=== PATIENT | male | born 1945 | race African-American/Black ===

== ENCOUNTER 2023-06-19 12:07 | Inpatient (IN) | payer OTHER ==
--- NOTE | 2023-06-19 12:49 | RAD REPORT ---
EXAM DESCRIPTION: CT - Head Brain Wo Cont - 06/19/2023 12:40 pm CLINICAL HISTORY: Alteration of awareness/confusion COMPARISON: None TECHNIQUE: Computed axial tomography of the head was obtained. IV contrast was not requested. All CT scans are performed using dose optimization technique as appropriate and may include automated exposure control or mA/KV adjustment according to patient size. FINDINGS: An intracranial bleed is not seen The ventricles are normal in caliber No extra-axial fluid collection is noted. Mild to moderate cerebral atrophy Fluid within the sinuses/ mastoids is not seen. IMPRESSION: No acute intracranial abnormality is seen If patient's symptoms persist MRI of the brain would be recommended
[2023-06-19 12:51] LABS: Protime INR 1.62
[2023-06-19 12:52] LABS: Hematocrit 37.1 % (39.6-49.0); Lymphocytes % 11.1 % (15.3-44.8); MCV 88.9 fL (80-100); MPV 8.3 fL (7.6-11.3); Platelets 251 thou/uL (152-406); RBC Red Blood Cell Count 4.18 M/uL (4.33-5.43)
--- NOTE | 2023-06-19 12:57 | RAD REPORT ---
EXAM DESCRIPTION: CT - Abdomen Pelvis Wo Contrast - 06/19/2023 12:39 pm CLINICAL HISTORY: Abdominal pain COMPARISON: None TECHNIQUE: Computed axial tomography of the abdomen and pelvis was obtained. IV and oral contrast we re not requested. All CT scans are performed using dose optimization technique as appropriate and may include automated exposure control or mA/KV adjustment according to patient size. FINDINGS: The evaluation of solid organs, vessels and bowel is limited secondary to the lack of con trast administration. The liver, spleen, pancreas, adrenals and kidneys appear grossly normal. Filter within the IVC. There is no evidence of diverticulitis. Compression screw and intramedullary desiree affix a proximal left femoral fracture. Lucencies are presen t within the intratrochanteric, lesser trochanter and greater trochanter left femur Borderline gallbladder distention IMPRESSION: Compression screw an intramedullary desiree affix a proximal left femoral fracture. Lucencies are present within the intratrochanteric, lesser trochanter and greater trochanter left femur. Presumably the fr acture and subsequent surgery is subacute. If the surgery is old then this would indicate a superimpo sed acute fracture Borderline gallbladder distention with possible sludge
[2023-06-19 13:21] LABS: Albumin 3.2 g/dL (3.4-5.0); Bilirubin Total 0.5 mg/dL (0.2-1.0); Potassium 4.5 mEq/L (3.5-5.1); Protein, Total 7.7 g/dL (6.4-8.2)
[2023-06-19] MEDS ORDERED: NACHLORIDE 0.45% 1,000 ML IV ONE (13:35)
--- NOTE | 2023-06-19 13:36 | RAD REPORT ---
EXAM DESCRIPTION: USExtremity Venous Uni Ltd06/19/2023 1:25 pm CLINICAL HISTORY: left leg pain COMPARISON: None FINDINGS: Left common femoral, superficial femoral, greater saphenous, popliteal and posterior tibi al veins are compressible and demonstrate augmentation. Doppler demonstrates good flow. Grayscale, color and spectral analysis performed on all vessels IMPRESSION: No evidence of deep venous thrombosis involving the left lower extremity.
--- NOTE | 2023-06-19 14:20 | EDPHYS ---
Physician Documentation [facility] Name: Anatoliy Harrington Jr Age: 78 yrs Sex: Male : 1945 Arrival Date: 06/19/2023 Time: 12:07 Bed 14 Private MD: ED Physician Juan Luis Wilkins HPI: 06/19 12:44 This 78 yrs old Black Male presents to ER via EMS with complaints of Hip Pain. rn 12:44 The patient presents with decreased responsiveness. Onset: The symptoms/episode rn began/occurred at an unknown time. Possible causes: unknown. Current symptoms: In the emergency department the patient's symptoms have improved. It is unknown whether or not the patient has had similar symptoms in the past. EMS reports called from [facility] for altered mental status. He is new to [facility] so they are unsure his baseline but they told EMS his baseline was laying in bed and open eyes. Reports patient's status post recent left hip injury and surgery. No new fall or trauma noted. Noted this morning during rounds to not be as arousable so 911 called. No fever. No vomiting.. Historical: - Allergies: 12:11 No Known Allergies; bp - PMHx: 12:11 LEFT HIP FX; Diabetes mellitus; Hypercholesterolemia; Schizophrenia; Dementia; bp Depressive disorder; Coronary atherosclerosis; Chronic obstructive lung disease; - Immunization history:: Adult Immunizations up to date. - Social history:: Smoking status: unknown. - Family history:: not pertinent. - Hospitalizations: : No recent hospitalization is reported. ROS: 12:44 Unable to obtain ROS due to altered mental status, baseline dementia, rn Exam: 12:44 Constitutional: Thin male, disheveled, appears in pain when moved to ER bed from rn stretcher Head/Face: Normocephalic, atraumatic. ENT: Dry mucous membranes Cardiovascular: Tachycardic, regular Respiratory: No increased work of breathing, no retractions or nasal flaring. Abdomen/GI: Soft, mild left-sided abdominal tenderness, no distention MS/ Extremity: Pulses equal, no cyanosis. Equal circumference. Painful range of motion left hip with Steri-Strips and healing surgical wounds along the left lateral hip. Neuro: Awake and alert, GCS 15 15:32 ECG was reviewed by the Attending Physician. rn Vital Signs: 12:06 BP 113 / 64; Pulse 111; Resp 17; Pulse Ox 99% on R/A; me1 12:09 BP 138 / 90; Pulse 112; Resp 20; Temp 98; Pulse Ox 97% ; bp 13:58 BP 122 / 76; Pulse 110; Resp 17; Pulse Ox 97% on R/A; me1 14:00 BP 136 / 77; Pulse 111; Resp 21; Pulse Ox 100% on R/A; me1 15:00 BP 130 / 80; Pulse 112; Resp 18; Pulse Ox 100% on R/A; me1 16:00 BP 119 / 77; Pulse 110; Resp 18; Pulse Ox 100% on R/A; me1 17:00 BP 121 / 90; Pulse 108; Resp 19; Pulse Ox 98% on R/A; me1 17:00 BP 118 / 76; Pulse 113; Resp 23; Pulse Ox 100% ; me1 MDM: 12:10 Patient medically screened. rn 14:18 Differential Diagnosis: CVA, electrolyte abnormality, hypoglycemia, pneumonia, UTI, rn volume depletion. Data reviewed: vital signs, nurses notes, lab test result(s), radiologic studies, CT scan, plain films, and as a result, I will admit patient. Consideration of Admission/Observation Patient was admitted/placed on observation. Escalation of care including admission/observation considered. Care significantly affected by the following chronic conditions: Diabetes, Hypertension. Counseling: I had a detailed discussion with the patient and/or guardian regarding the historical points, exam findings, and any diagnostic results supporting the discharge/admit diagnosis, lab results, radiology results, the need for further work-up and treatment in the hospital. 06/19 12:15 Order name: CBC with Diff; Complete Time: 13:12 rn 06/19 12:15 Order name: Urinalysis w/ reflexes; Complete Time: 15:10 rn 06/19 12:15 Order name: Blood Culture Adult (2) rn 06/19 12:15 Order name: CMP; Complete Time: 13:36 rn 06/19 12:15 Order name: Lactate w/ 2H reflex if indic.; Complete Time: 13:12 rn 06/19 12:15 Order name: Protime (+inr); Complete Time: 13:12 rn 06/19 12:15 Order name: Ptt, Activated; Complete Time: 13:12 rn 06/19 12:15 Order name: XRAY Hip LEFT 2 view; Complete Time: 15:31 rn 06/19 12:15 Order name: Extremity Venous Uni Ltd US; Complete Time: 13:55 rn 06/19 12:15 Order name: CT Abd/Pelvis - Without Contrast; Complete Time: 13:12 rn 06/19 12:15 Order name: CT Head Brain wo Cont; Complete Time: 13:12 rn 06/19 12:47 Order name: XRAY Chest (1 view); Complete Time: 15:31 rn 06/19 12:15 Order name: EKG; Complete Time: 12:16 rn 06/19 12:15 Order name: IV Start; Complete Time: 12:42 rn 06/19 12:15 Order name: Accucheck; Complete Time: 13:42 rn 06/19 12:15 Order name: Cardiac monitoring; Complete Time: 14:06 rn 06/19 12:15 Order name: EKG - Nurse/Tech; Complete Time: 14:06 rn 06/19 12:15 Order name: IV Saline Lock - Large Bore; Complete Time: 12:42 rn 06/19 12:15 Order name: Labs collected and sent; Complete Time: 12:42 rn 06/19 12:15 Order name: O2 Per Protocol; Complete Time: 12:42 rn 06/19 12:15 Order name: O2 Sat Monitoring; Complete Time: 12:42 rn 06/19 12:15 Order name: Vital Signs; Complete Time: 12:42 rn EC:32 Rate is 108 beats/min. Rhythm is regular. QRS [place] is Normal. AL interval is normal. rn QRS interval is normal. QT interval is normal. No Q waves. T waves are Normal. No ST changes noted. Clinical impression: Sinus tachycardia. Interpreted by me. Reviewed by me. Administered Medications: 13:25 CANCELLED (Duplicate Order): ns 0.9% 1000 ml IV at 1000 ml once rn 13:42 Drug: NS IV 0.45 % 1000 ml IV at 125 ml/hr continuous Route: IV; Rate: 125 ml/hr; Site: [facility] right antecubital; Disposition Summary: 06/19/23 14:19 Hospitalization Ordered Notes: Hospitalization Status: Inpatient Admission rn Provider: Robson Ortega rn Location: Telemetry/MedSurg (Inpatient) rn Condition: Stable rn Problem: new rn Symptoms: have improved rn Bed/Room Type: Standard rn Room Assignment: 407(06/19/23 16:41) bd Diagnosis - Altered mental status, unspecified rn - Acute kidney failure, unspecified rn - Hyperosmolality and hypernatremia rn Forms: - Medication Reconciliation Form rn - SBAR form rn - Leadership Thank You Letter rn Signatures: Dispatcher [employer] EDNathalie Ovalle Roman, MD MD rn Peltier, Brian RN Holley Pandey RN RN me1 Corrections: (The following items were deleted from the chart) 13:25 13:25 NS 0.9% IV 1000 ml IV at 1000 ml once ordered. rn rn 16:41 14:19 rn gabrielle
--- NOTE | 2023-06-19 14:20 | ER ---
Nurse's Notes [facility] Name: Anatoliy Harrington Jr Age: 78 yrs Sex: Male : 1945 Arrival Date: 06/19/2023 Time: 12:07 Bed 14 Private MD: Diagnosis: Altered mental status, unspecified;Acute kidney failure, unspecified;Hyperosmolality and hypernatremia Presentation: 06/19 12:09 Chief complaint: EMS states: SENT FROM [facility] FOR DECREASED LOC "NORMALLY HE OPENS bp HIS EYES. TODAY HE'S KEPT THEM CLOSED MORE". Coronavirus screen: At this time, the client does not indicate any symptoms associated with coronavirus-19. Ebola Screen: No symptoms or risks identified at this time. Initial Sepsis Screen: Does the patient meet any 2 criteria? HR > 90 bpm. No. Patient's initial sepsis screen is negative. Does the patient have a suspected source of infection? No. Patient's initial sepsis screen is negative. Risk Assessment: Do you want to hurt yourself or someone else? Patient reports no desire to harm self or others. Onset of symptoms is unknown. Care prior to arrival: Glucose check: 154. 12:09 Method Of Arrival: EMS: [facility] bp 12:09 Acuity: KARO 3 bp Triage Assessment: 12:11 General: Appears uncomfortable, unkempt, Behavior is agitated, anxious. Pain: Unable to bp use pain scale. Does not appear to understand pain scale. Historical: - Allergies: 12:11 No Known Allergies; bp - PMHx: 12:11 LEFT HIP FX; Diabetes mellitus; Hypercholesterolemia; Schizophrenia; Dementia; bp Depressive disorder; Coronary atherosclerosis; Chronic obstructive lung disease; - Immunization history:: Adult Immunizations up to date. - Social history:: Smoking status: unknown. - Family history:: not pertinent. - Hospitalizations: : No recent hospitalization is reported. Screenin:14 [facility] ED Fall Risk Assessment (Adult) History of falling in the last 3 months, bp including since admission No falls in past 3 months (0 pts). Abuse screen: Denies threats or abuse. Denies injuries from another. Nutritional screening: No deficits noted. Tuberculosis screening: No symptoms or risk factors identified. Assessment: 12:10 General: Appears. me1 Vital Signs: 12:06 BP 113 / 64; Pulse 111; Resp 17; Pulse Ox 99% on R/A; me1 12:09 BP 138 / 90; Pulse 112; Resp 20; Temp 98; Pulse Ox 97% ; bp 13:58 BP 122 / 76; Pulse 110; Resp 17; Pulse Ox 97% on R/A; me1 14:00 BP 136 / 77; Pulse 111; Resp 21; Pulse Ox 100% on R/A; me1 15:00 BP 130 / 80; Pulse 112; Resp 18; Pulse Ox 100% on R/A; me1 16:00 BP 119 / 77; Pulse 110; Resp 18; Pulse Ox 100% on R/A; me1 17:00 BP 121 / 90; Pulse 108; Resp 19; Pulse Ox 98% on R/A; me1 17:00 BP 118 / 76; Pulse 113; Resp 23; Pulse Ox 100% ; me1 ED Course: 12:09 Patient arrived in ED. bp 12:10 Juan Luis Wilkins MD is Attending Physician. rn 12:10 Holley Sanford RN is Primary Nurse. me1 12:11 Triage completed. bp 12:11 Arm band placed on. bp 12:14 Patient has correct armband on for positive identification. bp 12:41 CT Abd/Pelvis - Without Contrast In Process Unspecified. EDMS 12:41 CT Head Brain wo Cont In Process Unspecified. EDMS 12:41 Inserted saline lock: 20 gauge in right antecubital area, using aseptic technique. me1 12:42 CBC with Diff Sent. me1 13:26 Extremity Venous Uni Ltd US In Process Unspecified. EDMS 14:19 Robson Ortega MD is Hospitalizing Provider. rn 14:39 XRAY Hip LEFT 2 view In Process Unspecified. EDMS 14:39 XRAY Chest (1 view) In Process Unspecified. EDMS 14:50 Blood Culture Adult (2) Sent. me1 14:50 Urinalysis w/ reflexes Sent. me1 17:43 No provider procedures requiring assistance completed. Inserted saline lock: 24 gauge me1 in left antecubital area, using aseptic technique. 17:44 Provided Education on: Sister informed on need for admission. Verbalized understanding. me1 . 17:44 Patient admitted, IV remains in place. me1 Administered Medications: 13:25 CANCELLED (Duplicate Order): ns 0.9% 1000 ml IV at 1000 ml once rn 13:42 Drug: NS IV 0.45 % 1000 ml IV at 125 ml/hr continuous Route: IV; Rate: 125 ml/hr; Site: dc1 right antecubital; Medication: 17:45 VIS not applicable for this client. me1 Outcome: 14:19 Decision to Hospitalize by Provider. rn 17:44 Admitted to Tele accompanied by tech, via stretcher, room 407, with chart, Report me1 called to DIEGO Shetty 17:44 Condition: stable 17:44 Instructed on the need for admit, 17:53 Patient left the ED. ll1 Signatures: Dispatcher [employer] EDJuan Luis Gupta MD MD rn Peltier, Brian, RN RN bp Lewis, Lynsay, RN RN 1 Holley Sanford RN RN dc1 Corrections: (The following items were deleted from the chart) 14:13 12:09 Chief complaint: EMS states: SENT FROM [place] FOR DECREASED LOC "NORMALLY HE me1 OPENS HIS EYES. TODAY HE'S KEPT THEM CLOSED MORE" bp 17:02 12:09 Chief complaint: EMS states: [facility] "NORMALLY HE me1 OPENS HIS EYES. TODAY HE'S KEPT THEM CLOSED MORE" dc1
[2023-06-19 15:01] LABS: Specific Gravity 1.017 (1.005-1.030); Urine Bilirubin NEGATIVE (Negative); Urine Blood Negative (Negative); Urine Clarity Clear (Clear); Urine Color Light-Yellow (Yellow); Urine Glucose NEGATIVE (Negative); Urine Protein NEGATIVE (Negative); Urine Urobilinogen Normal (Normal)
--- NOTE | 2023-06-19 15:30 | RAD REPORT ---
EXAM DESCRIPTION: RAD - Hip Left 2 View - 06/19/2023 2:37 pm CLINICAL HISTORY: Left hip pain status post injury FINDINGS: Compression screw and intramedullary desiree affix a proximal left femur fracture. No dislocation Refer to the CT same day for additional findings
--- NOTE | 2023-06-19 15:31 | RAD REPORT ---
EXAM DESCRIPTION: Wilbur Single View06/19/2023 2:37 pm CLINICAL HISTORY: Chest pain COMPARISON: none FINDINGS: The lungs appear clear of acute infiltrate. The heart is normal size IMPRESSION: No acute abnormalities displayed
[2023-06-19] MEDS ORDERED: ACETAMINOPHEN 325 MG TABLET PO PRN (15:43)
[2023-06-19] MEDS ORDERED: ONDANSETRON 4 MG/2 ML VIAL IV PRN (15:46)
[2023-06-19] MEDS ORDERED: GLUCAGON 1 MG/VIAL IM PRN (15:50)
[2023-06-19] MEDS ORDERED: D50W 25 GM/50 ML SYRINGE IV PRN (15:50)
--- NOTE | 2023-06-19 15:53 | P.HP ---
Certification for Inpatient Patient admitted to: Inpatient With expected LOS: >2 Midnights Patient will require the following post-hospital care: None Practitioner: I am a practitioner with admitting privileges, knowledge of patient current condition, hospital course, and medical plan of care. Services: Services provided to patient in accordance with Admission requirements found in Title 42 Section 412.3 of the Code of Federal Regulations <ShaileshtiffnaieYahaira lomeli Carlos - Last Filed: 06/19/23 18:27> Patient History Date of Service: 06/19/23 Reason for admission: Altered mental status History of Present Illness: Patient is a 78-year-old male with a past medical history significant for DM, hyperlipidemia, schizophrenia, dementia, depression, CAD, COPD who presents with complaint of altered mental status. [facility] a [facility]. Patient is confused and unable to provide any history. Patient's sister repor darien that nursing staff at the penitentiary called patient's sister and she was informed that patient is confused. Family also reported that patient has been having poor appetite for quite some time now. Family also reported that patient recently had a left hip surgery status post injury. No other signs and symptoms reported. Symptoms aggravated or relieved by nothing. Patient was brought to [facility] for medical evaluation. - Past Medical/Surgical History -: Dementia -: DM 2 -: Hyperlipidemia -: Schizophrenia -: Depression -: CAD -: COPD -: Left hip surgery - Social History Smoking Status: Unknown if ever smoked Alcohol use: No CD- Drugs: No Caffeine use: No Place of Residence: Penit[facility]iary <SachinRoycedileep E - Last Filed: 06/19/23 18:27> Date of Service: 06/20/23 <Robson Ortega - Last Filed: 06/20/23 15:44> Allergies No Known Allergies Allergy (Unverified 06/19/23 15:49) Review of Systems is unable to be obtained (Patient is confused.) <SachinRoycedileep E - Last Filed: 06/19/23 18:27> Physical Examination - Physical Exam General: Alert, In no apparent distress, Demented, Confused HEENT: Atraumatic, PERRLA, Mucous membr. moist/pink, EOMI, Sclerae nonicteric Neck: Supple, 2+ carotid pulse no bruit, No LAD, Without JVD or thyroid abnormality Respiratory: Clear to auscultation bilaterally, Normal air movement Cardiovascular: No edema, Regular rate/rhythm, Normal S1 S2 Capillary refill: <2 Seconds Gastrointestinal: Normal bowel sounds, Non-distended, No tenderness Musculoskeletal: No clubbing, No tenderness Integumentary: No rashes Neurological: Normal tone, Normal affect, Abnormal speech Lymphatics: No axilla or inguinal lymphadenopathy - Studies Laboratory Data (last 24 hrs) 06/19/23 06/19/23 06/19/23 12:30 12:30 12:30 WBC 8.60 Hgb 12.0 L Hct 37.1 L Plt Count 251 PT 17.6 H INR 1.62 APTT 34.9 Sodium 151 H* Potassium 4.5 BUN 38 H Creatinine 2.18 H Glucose 145 H Total Bilirubin 0.5 AST 22 ALT 29 Alkaline Phosphatase 321 H <Yahaira Stephenson - Last Filed: 06/19/23 18:27> Assessment and Plan - Plan --Acute encephalopathy. Unclear etiology. UA negative. CT head unremarkable for any acute intracranial abnormality. Neurologist consulted. Will await further recommendations. --COPD. Stable. Continue home medication. --Hyperlipidemia. Continue home medication. --Depression\history of schizophrenia. Continue home medications. --Dementia. Baseline mental unknown. Continue supportive care. --History of CAD. Continue aspirin. --CHARITO. Baseline renal functions unknown. Continue IV hydration. Will continue to monitor renal functions. --Hypernatremia. Repeat levels pending. We will continue to monitor sodium levels. --DM2. BS monitoring with sliding scale insulin. -- DVT prophylaxis with Lovenox subQ Discharge Plan: [facility] Plan to discharge in: Greater than 2 days - Advance Directives Does patient have a Living Will: No Does patient have a Durable POA for Healthcare: No - Code Status/Comfort Care Code Status Assessed: Yes Physician Review: Patient Assessed, Agree with Above Assessment and Plan Critical Care: No <Yahaira Stephenson - Last Filed: 06/19/23 18:27> - Plan Pt seen and examined. I agree with the note by the PLAN CHECKER. Pt has AMS due to hypernatremia. Will continue D5W. trend Na. <Robson Ortega - Last Filed: 06/20/23 15:44>
[2023-06-19] MEDS: INSULIN REGULAR (HUMAN) 100 UNIT/ML SQ SCH (16:30)
[2023-06-19] MEDS: HYDROCODONE/APAP 5/325 MG TAB PO PRN (18:17)
[2023-06-19] MEDS: Ringers Lactate 1,000 ML IV SCH (18:30)
[2023-06-19 19:15] LABS: Magnesium 2.5 mg/dL (1.6-2.4); Phosphorus 4.5 mg/dL (2.5-4.9); Potassium 4.6 mEq/L (3.5-5.1); Thyroid Stimulating Hormone 1.93 uIU/mL (0.358-3.740)
[2023-06-19] MEDS ORDERED: D5W 1,000 ML IV SCH (23:00)
[2023-06-20] MEDS: D5W 1,000 ML IV SCH (01:49)
[2023-06-20] MEDS: ASPIRIN 81 MG CHEWABLE TABLET PO SCH (07:43)
[2023-06-20] MEDS ORDERED: D5W 1,000 ML IV SCH (08:00)
[2023-06-20] MEDS: ENOXAPARIN 30 MG/0.3 ML SQ SCH (08:05)
--- NOTE | 2023-06-20 12:06 | P.PN ---
Subjective Date of Service: 06/20/23 Chief Complaint: Altered mental status Pt is resting comfortably in bed. He mumbles most of the time. Sodium is 151. Will continue D5W. Left surgical site is intact. No other complaints. Review of Systems is unable to be obtained Physical Examination - Vital Signs Temperature: 97.5 F Blood Pressure: 117/72 Pulse: 97 Respirations: 12 Pulse Ox (%): 96 - Physical Exam General: Alert, In no apparent distress, Oriented x3 HEENT: Atraumatic, Normocephalic, PERRLA Neck: Supple, 2+ carotid pulse no bruit Respiratory: Clear to auscultation bilaterally, Normal air movement Cardiovascular: No edema, Normal pulses, Regular rate/rhythm Capillary refill: <2 Seconds Gastrointestinal: Normal bowel sounds, Soft and benign, Non-distended Musculoskeletal: No clubbing, No swelling Integumentary: No rashes, No breakdown Neurological: Normal tone, Sensation intact Lymphatics: No axilla or inguinal lymphadenopathy - Studies Laboratory Data (last 24 hrs) 06/19/23 06/19/23 06/19/23 12:30 12:30 12:30 WBC 8.60 Hgb 12.0 L Hct 37.1 L Plt Count 251 PT 17.6 H INR 1.62 APTT 34.9 Sodium 151 H* Potassium 4.5 BUN 38 H Creatinine 2.18 H Glucose 145 H Total Bilirubin 0.5 AST 22 ALT 29 Alkaline Phosphatase 321 H Assessment And Plan - Plan Acute encephalopathy: Likely due to hypernatremia. Na is 151. Will continue D5W and trend Na level. UA is negative. CT head is unremarkable for any acute intracranial abnormality. COPD. Stable. Continue home medication. Hyperlipidemia: Statin. Depression\history of schizophrenia: Continue home medications. Dementia: Baseline mental unknown. Continue supportive care. History of CAD: Continue aspirin. CHARITO: Baseline renal functions unknown. Cr is 2.13. Will continue IVF, avoid nephrotoxins and monitor renal function. Hypernatremia: Na is 151. Will continue D5W and trend Na level. DM II: Continue accuchek, SSI and ADA diet. DVT prophylaxis: Lovenox subQ Dispo: Pending hospital course. Physician Review: Patient Assessed, Agree with Above Assessment and Plan
[2023-06-20 13:21] LABS: Lymphocytes % 11.3 % (15.3-44.8); MCV 89.4 fL (80-100); MPV 8.4 fL (7.6-11.3); Platelets 200 thou/uL (152-406); RBC Red Blood Cell Count 3.91 M/uL (4.33-5.43)
--- NOTE | 2023-06-20 13:24 | EKG ---
Test Date: 2023-06-19 Test Time: 13:59:18 Length Control Tester: LAUREN MEASUREMENT RESULTS: Intervals: Rate: 108 MI: 134 QRSD: 74 QT: 342 QTc: 458 Healy: P: 83 MI: 134 QRS: 13 T: 23 INTERPRETIVE STATEMENTS: Sinus tachycardia Otherwise normal ECG No previous ECG available for comparison Electronically Signed On 06-20-23 13:22:09 [employer]ANDER by Dutch Dubose
[2023-06-20 13:25] LABS: Potassium 3.9 mEq/L (3.5-5.1)
[2023-06-21 03:53] LABS: Absolute Lymphocytes (CBC) 0.9 K/uL (0.7-4.9); Hematocrit 34.2 % (39.6-49.0); Lymphocytes % 12.6 % (15.3-44.8); MCV 88.8 fL (80-100); Platelets 187 thou/uL (152-406); RBC Red Blood Cell Count 3.85 M/uL (4.33-5.43)
[2023-06-21 04:13] LABS: Potassium 3.8 mEq/L (3.5-5.1)
[2023-06-21] MEDS: POTASSIUM 25 MEQ EFFERV TAB PO ONE (04:31)
[2023-06-21] MEDS: D5W 1,000 ML IV SCH (07:48)
[2023-06-21 08:03] VITALS: BP 160/99; TEMP 98.6
--- NOTE | 2023-06-21 10:04 | P.PN ---
Subjective Date of Service: 06/21/23 Chief Complaint: Altered mental status Pt is resting comfortably in bed. He is mumbling. Sodium is 141. Will decrease rate of D5W. Left surgical site is intact. No other complaints. Review of Systems is unable to be obtained Physical Examination - Vital Signs Temperature: 98.6 F Blood Pressure: 160/99 Pulse: 104 Respirations: 18 Pulse Ox (%): 98 - Physical Exam General: Alert, In no apparent distress, Confused HEENT: Atraumatic, Normocephalic, PERRLA Neck: Supple, 2+ carotid pulse no bruit Respiratory: Clear to auscultation bilaterally, Normal air movement Cardiovascular: No edema, Normal pulses, Regular rate/rhythm, Normal S1 S2 Capillary refill: <2 Seconds Gastrointestinal: Normal bowel sounds, Soft and benign, Non-distended Musculoskeletal: No clubbing, No swelling Integumentary: No rashes, No breakdown, Other (left hip surgical scar is intact) Neurological: Normal gait, Normal speech, Normal strength at 5/5 x4 extr, Normal tone, Sensation intact, Cranial nerves 3-12 intact Lymphatics: No axilla or inguinal lymphadenopathy Assessment And Plan - Plan Acute encephalopathy: Likely due to hypernatremia. Na is 141<- 151. Will decre ase rate of D5W and trend Na level. UA is negative. CT head is unremarkable for any acute intracranial abnormality. COPD. Stable. Continue home medication. Hyperlipidemia: Statin. Depression\history of schizophrenia: Continue home medications. Dementia: Baseline mental unknown. Continue supportive care. History of CAD: Continue aspirin. CHARITO: Baseline renal functions unknown. Cr is 1.55<- 2.13. Will continue IVF, avoid nephrotoxins and monitor renal function. Hypernatremia: Na is 141. Will reduce rate of D5W and trend Na level. DM II: Continue accuchek, SSI and ADA diet. DVT prophylaxis: Lovenox subQ Dispo: Pending hospital course. Physician Review: Patient Assessed, Agree with Above Assessment and Plan
[2023-06-21 11:28] VITALS: O2SAT 94
--- NOTE | 2023-06-21 12:24 | P.DS ---
Admission Date: 06/19/23 Discharge Date: 06/21/23 Disposition: TRANSFER TO DETENTION Discharge Condition: GOOD Reason for Admission: Altered mental status Brief History of Present Illness: Patient is a 78-year-old male with a past medical history significant for DM, hyperlipidemia, schizophrenia, dementia, depression, CAD, COPD who presents with complaint of altered mental status. Patient is a resident of a prison. Patient is confused and unable to provide any history. Patient's sister reported that nursing staff at the prison called patient's sister and she was informed that patient is confused. Family also reported that patient has been having poor appetite for quite some time now. Family also reported that patient recently had a left hip surgery status post injury. No other signs and symptoms reported. Symptoms aggravated or relieved by nothing. Patient was brought to the hospital for medical evaluation. Hospital Course: Patient is a 78yo male with past medical history significant of DM, hyperlipidemia, schizophrenia, dementia, depression, CAD, and COPD who presented with altered mental status. Patient is a resident of a prison. He was c onfused and unable to give history upon admission. chart review showed that pt was confused and had poor oral intake. Of note, he was recently discharged from this hospital after he had left hip surgery. On admission, lab studies showed WBC 8.6, Hgb 12, K 4.5, Na is 151, Cr 2.18. CT head was unremarkable. Doppler ultrasound was negative for DVT. We admitted pt for acute metabolic encep halopathy, likely du eto hypernatremia. We started D5W and trended Na level. Sodium improved to 141. Pt continued to mumble to himself. CHARITO also improved with hydration. We continued home meds for other chronic medical problems. The surgical site on left hip remained intact. Pt was in NAD prior to discharge. Vital Signs/Physical Exam: Temp Pulse Resp BP Pulse Ox 98.6 F 104 H 18 160/99 H 98 06/21/23 11:24 06/21/23 11:24 06/21/23 11:24 06/21/23 11:24 06/21/23 11:24 Laboratory Data at Discharge: WBC 6.90 thou/uL (4.3-10.9) 06/21/23 02:58 Hgb 11.2 g/dL (13.6-17.9) L 06/21/23 02:58 Hct 34.2 % (39.6-49.0) L 06/21/23 02:58 Plt Count 187 thou/uL (152-406) 06/21/23 02:58 PT 17.6 SECONDS (9.5-12.5) H 06/19/23 12:30 INR 1.62 06/19/23 12:30 APTT 34.9 SECONDS (24.3-36.9) 06/19/23 12:30 Sodium 141 mEq/L (136-145) D 06/21/23 02:58 Potassium 3.8 mEq/L (3.5-5.1) 06/21/23 02:58 BUN 29 mg/dL (7-18) H 06/21/23 02:58 Creatinine 1.55 mg/dL (0.70-1.30) H 06/21/23 02:58 Glucose 135 mg/dL (74-106) H 06/21/23 02:58 Phosphorus 4.5 mg/dL (2.5-4.9) 06/19/23 18:30 Magnesium 2.5 mg/dL (1.6-2.4) H 06/19/23 18:30 Total Bilirubin 0.5 mg/dL (0.2-1.0) 06/19/23 12:30 AST 22 U/L (15-37) 06/19/23 12:30 ALT 29 U/L (16-61) 06/19/23 12:30 Alkaline Phosphatase 321 U/L (45-117) H 06/19/23 12:30 Triglycerides 112 mg/dL (<150) 06/20/23 12:56 Cholesterol 153 mg/dL (<200) 06/20/23 12:56 HDL Cholesterol 41 mg/dL (40-60) 06/20/23 12:56 Cholesterol/HDL Ratio 3.73 06/20/23 12:56 Home Medications: Amino Acids/Protein Hydrolys [Proteinex-18 Liquid] 30 ml PO DAILY 06/20/23 Amlodipine Besylate [Norvasc] 2.5 mg PO BEDTIME 06/20/23 Apixaban [Eliquis] 1 tab PO BID 06/20/23 Ascorbic Acid [C-1000] 1,000 mg PO DAILY 06/20/23 Atorvastatin Calcium [Lipitor] 40 mg PO BEDTIME 06/20/23 Buspirone HCl [Buspar*] 5 mg PO BID 06/20/23 Cyanocobalamin [Vitamin B-12*] 500 mcg PO DAILY 06/20/23 Ferrous Sulfate [Ferrous Sulfate*] 325 mg PO BID 06/20/23 Gabapentin [Neurontin*] 100 mg PO TID 06/20/23 Insulin Aspart [Novolog Flexpen] See Protocol SQ ACHS 06/20/23 Memantine HCl [Namenda*] 10 mg PO BID 06/20/23 Omeprazole 20 mg PO DAILY 06/20/23 Ondansetron [Zofran (Odt)*] 1 tab PO Q6H PRN 06/20/23 Sertraline HCl 25 mg PO DAILY 06/20/23 Tramadol HCl [Ultram] 50 mg PO Q6HP PRN 06/20/23 Physician Discharge Instructions: Continue ad ray activity. Continue oral intake at the prison. Take home meds. Follow up with PCP within 1 - 2 weeks. Diet: AHA Activity: Ad ray Followup: NONE,NONE [Primary Care Provider] -
[2023-06-21 13:47] LABS: SARS-CoV-2 Antigen Rapid Res Negative (Negative)
[2023-06-22] MEDS ORDERED: ENOXAPARIN 40 MG/0.4 ML SQ SCH (09:00)
== END 2023-06-21 16:20 | DRG 640 ==
LOC: ER 12:07 → ERHOLD 15:01 → 4TH 17:00
PROVIDERS: ADMIT Hospitalist; ATTEND Hospitalist
DX: E87.0 Hyperosmolality and hypernatremia (principal); G93.41 Metabolic encephalopathy; N17.9 Acute kidney failure, unspecified; F03.93 Unspecified dementia, unspecified severity, with mood disturbance; E11.9 Type 2 diabetes mellitus without complications; E78.00 Pure hypercholesterolemia, unspecified; J44.9 Chronic obstructive pulmonary disease, unspecified; I25.10 Atherosclerotic heart disease of native coronary artery without angina pectoris; Z79.01 Long term (current) use of anticoagulants; Z11.52 Encounter for screening for COVID-19; Z79.82 Long term (current) use of aspirin; Z79.899 Other long term (current) drug therapy
CPT/HCPCS: 36415; 70450; 71045; 74176; 80048; 80053; 80061; 81003; 82550; 82947; 83605; 83735; 83880; 84100; 84295; 84439; 84443; 85025; 85610; 85730; 87040; 87811; 93005; 93971; 97110; 97161; 97530; J1650; J1815; J7120

== ENCOUNTER 2023-09-05 15:44 | Inpatient (IN) | payer OTHER ==
--- NOTE | 2023-09-05 17:11 | RAD REPORT ---
EXAM DESCRIPTION: [facility] Single View09/05/2023 4:24 pm CLINICAL HISTORY: Confusion COMPARISON: May 2023 FINDINGS: Metallic densities overlie the chest. The lungs appear clear of acute infiltrate. The heart is normal size IMPRESSION: No acute abnormalities displayed
--- NOTE | 2023-09-05 17:14 | RAD REPORT ---
EXAM DESCRIPTION: CT - Head Brain Wo Cont - 09/05/2023 4:34 pm CLINICAL HISTORY: Alteration of awareness/confusion COMPARISON: May 2023 TECHNIQUE: Computed axial tomography of the head was obtained. IV contrast was not requested. All CT scans are performed using dose optimization technique as appropriate and may include automated exposure control or mA/KV adjustment according to patient size. FINDINGS: An intracranial bleed is not seen The ventricles are normal in caliber No extra-axial fluid collection is noted. No significant hypodensity within the brain. Mild cerebral atrophy Fluid within the sinuses/ mastoids is not seen. IMPRESSION: No acute intracranial abnormality is seen If patient's symptoms persist MRI of the brain would be recommended
[2023-09-05 17:44] LABS: Albumin 3.8 g/dL (3.4-5.0); Albumin/Globulin Ratio 0.9 (1.1-1.8); Anion Gap 6.9 mEq/L (5.0-15.0); Bilirubin Total 0.4 mg/dL (0.2-1.0); Globulin 4.1 g/dL (2.3-3.5); Potassium 4.9 mEq/L (3.5-5.1); Protein, Total 7.9 g/dL (6.4-8.2)
[2023-09-05 17:54] LABS: Absolute Lymphocytes (CBC) 0.7 K/uL (0.7-4.9); Absolute Monocytes 0.5 K/uL (0.1-1.3); Absolute Neutrophil 6.2 K/uL (1.8-8.0); Basophils % 0.1 % (0-1.3); Eosinophils % 0.5 % (0-4.4); Hematocrit 43.4 % (39.6-49.0); Hemoglobin 13.6 g/dL (13.6-17.9); Lymphocytes % 9.3 % (15.3-44.8); MCHC 31.4 g/dL (32.0-36.0); MPV 9.9 fL (7.6-11.3); Monocytes % 6.6 % (3.3-12.3); Neutrophils % 83.5 % (41.7-73.7); Nucleated Red Blood Cells % 0.1 % (0-0); Platelets 257 thou/uL (152-406); RBC Red Blood Cell Count 5.04 M/uL (4.33-5.43); Red Cell Distribution Width 15.3 % (12.1-15.2)
[2023-09-05 17:56] LABS: INFLUENZA A NAA NEGATIVE (NEGATIVE); RESPIRATORY SYNCYTIAL VIR NAA NEGATIVE (NEGATIVE); SARS-COV-2 RT PCR NEGATIVE (NEGATIVE)
--- NOTE | 2023-09-05 18:04 | EDPHYS ---
Physician Documentation [facility] Name: Anatoliy Harrington Jr Age: 78 yrs Sex: Male : 1945 Arrival Date: 09/05/2023 Time: 15:44 Bed 17 Private MD: ED Physician Nahomi Cortez HPI: 09/04 15:56 This 78 yrs old Black Male presents to ER via EMS with complaints of AMS. sb4 15:56 Onset: The symptoms/episode began/occurred at an unknown time. sb4 15:57 patient with history of dementia, is nonverbal, presents from retirement as staff sb4 thought he seemed "off" less arousable than usual. patient cannot provide any history. in NAD during my assessment. Historical: - Allergies: 15:52 No Known Allergies; bp - PMHx: 15:52 Chronic obstructive lung disease; coronary atherosclerosis; Dementia; depressive bp disorder; diabetes mellitus; Hypercholesterolemia; LEFT HIP FX; Schizophrenia; - Immunization history:: Adult Immunizations up to date. - Infectious Disease History:: Denies. - Social history:: Smoking status: Patient denies any tobacco usage or history of. ROS: 15:57 Unable to obtain ROS due to altered mental status, baseline dementia, sb4 Exam: 15:57 Constitutional: The patient appears in no acute distress, alert, awake, frail, sb4 obviously ill, 15:59 Head/Face: Normocephalic, atraumatic. sb4 15:59 Eyes: Pupils: equal, round, and reactive to light and accomodation, 15:59 ENT: Exam is negative for nasal discharge, 15:59 Cardiovascular: Rate: normal, Rhythm: regular, 15:59 Respiratory: the patient does not display signs of respiratory distress, 15:59 Abdomen/GI: Exam negative for distension, tenderness, 15:59 Skin: Exam negative for cellulitis, rash, 15:59 Neuro: Orientation: unable to test, the patient has a history of dementia, Mentation: unable to test, the patient has a history of dementia, Vital Signs: 15:49 BP 124 / 83; Pulse 71; Resp 16; Temp 98; Pulse Ox 95% ; bp 17:37 BP 136 / 85; Pulse 99; Resp 16; Pulse Ox 96% ; bp 18:26 BP 105 / 81; Pulse 103; Resp 16; Pulse Ox 98% ; bp 19:32 BP 113 / 81; Pulse 100; Pulse Ox 98% on R/A; tm6 MDM: 15:49 Patient medically screened. sb4 18:03 Data reviewed: vital signs, nurses notes, lab test result(s), EKG, radiologic studies, sb4 I have discussed the patient's presentation/case with the attending Emergency Department Physician; and as a result, I will admit patient. Consideration of Admission/Observation Patient was admitted/placed on observation. Counseling: I had a detailed discussion with the patient and/or guardian regarding the historical points, exam findings, and any diagnostic results supporting the discharge/admit diagnosis, lab results, radiology results, the need for further work-up and treatment in the hospital. 09/04 15:53 Order name: CBC with Diff; Complete Time: 18:01 sb4 09/04 15:53 Order name: CMP; Complete Time: 17:52 sb4 09/04 15:53 Order name: Lipase; Complete Time: 17:52 sb4 09/04 15:53 Order name: Urinalysis w/ reflexes sb4 09/04 15:53 Order name: COVID-19/FLU A+B/RSV; Complete Time: 17:57 sb4 09/04 15:56 Order name: Osmolality, Serum sb4 09/04 15:56 Order name: Urine Osmolality sb4 09/04 15:56 Order name: Urine Sodium Random sb4 09/04 18:18 Order name: Urinalysis w/ reflexes EDMS 09/04 18:18 Order name: CBC with Automated Diff EDMS 09/04 18:18 Order name: CBC with Automated Diff EDMS 09/04 18:18 Order name: Comprehensive Metabolic Panel EDMS 09/04 18:18 Order name: Comprehensive Metabolic Panel EDMS 09/04 18:20 Order name: Ammonia EDMS 09/04 18:20 Order name: Thyroid Stimulating Hormone EDMS 09/04 18:20 Order name: Urine Drug Screen EDMS 09/04 15:53 Order name: Chest Single View XRAY; Complete Time: 17:12 sb4 09/04 15:53 Order name: Head Brain Wo Cont CT; Complete Time: 17:18 sb4 09/04 15:53 Order name: IV Saline Lock; Complete Time: 17:09 sb4 09/04 15:53 Order name: Labs collected and sent; Complete Time: 17:09 sb4 EC:03 Rate is 101 beats/min. Rhythm is regular, Sinus tachycardia. WI interval is normal at sb4 166 msec. QRS interval is normal at 74 msec. QT interval is normal at [address] changes noted. Clinical impression: No evidence of ischemia. Interpreted by me. Reviewed by me. Administered Medications: 18:15 Drug: D5W IV 1000 ml IV at 50 ml/hr continuous Route: IV; Rate: 50 ml/hr; Site: right bp forearm; Disposition: 18:04 Chart complete. sb4 Disposition Summary: 09/05/23 18:04 Hospitalization Ordered Notes: Hospitalization Status: Inpatient Admission sb4 Provider: Les Stevenson sb4 Condition: Fair sb4 Problem: new sb4 Symptoms: are unchanged sb4 Bed/Room Type: Standard sb4 Location: Intensive Care Unit(09/05/23 19:05) bd Room Assignment: 6-(09/05/23 19:05) bd Diagnosis - Hyperosmolality and hypernatremia sb4 - Altered mental status, unspecified sb4 Forms: - Medication Reconciliation Form sb4 - SBAR form sb4 - Leadership Thank You Letter sb4 Signatures: Dispatcher [employer] EDMS Nathalie Pike Brian RN RN Brigitte Corona PA-C PAJordan sb4 Corrections: (The following items were deleted from the chart) 18:38 18:04 sb4 bd 19:00 18:04 Telemetry/MedSurg (Inpatient) sb4 bd 19:00 18:38 426 bd bd 19:05 19:00 [facility] ER HOLD bd bd 19:05 19:00 ERHOLD- bd bd
--- NOTE | 2023-09-05 18:04 | ER ---
Nurse's Notes [facility] Name: Anatoliy Harrington Jr Age: 78 yrs Sex: Male : 1945 Arrival Date: 09/05/2023 Time: 15:44 Bed 17 Private MD: Diagnosis: Hyperosmolality and hypernatremia;Altered mental status, unspecified Presentation: 09/04 15:49 Chief complaint: EMS states: SENT FROM [facility] "HE JUST SEEMED OFF". Coronavirus bp screen: At this time, the client does not indicate any symptoms associated with coronavirus-19. Ebola Screen: No symptoms or risks identified at this time. Initial Sepsis Screen: Does the patient meet any 2 criteria? No. Patient's initial sepsis screen is negative. Does the patient have a suspected source of infection? No. Patient's initial sepsis screen is negative. Risk Assessment: Do you want to hurt yourself or someone else? Patient reports no desire to harm self or others. Onset of symptoms was September 05, 2023. Care prior to arrival: Glucose check: 165. 15:49 Method Of Arrival: EMS: [facility] bp 15:49 Acuity: KARO 3 bp 15:51 Note SAME PRESENTATION SENT FROM [facility] ON PREVIOUS INSTANCE. bp Triage Assessment: 15:52 General: Appears in no apparent distress. Behavior is NON-VERBAL. Pain: Unable to use bp pain scale. Does not appear to understand pain scale. Historical: - Allergies: 15:52 No Known Allergies; bp - PMHx: 15:52 Chronic obstructive lung disease; coronary atherosclerosis; Dementia; depressive bp disorder; diabetes mellitus; Hypercholesterolemia; LEFT HIP FX; Schizophrenia; - Immunization history:: Adult Immunizations up to date. - Infectious Disease History:: Denies. - Social history:: Smoking status: Patient denies any tobacco usage or history of. Screenin:53 [facility] ED Fall Risk Assessment (Adult) History of falling in the last 3 months, bp including since admission No falls in past 3 months (0 pts). Abuse screen: Denies threats or abuse. Denies injuries from another. Nutritional screening: No deficits noted. Tuberculosis screening: No symptoms or risk factors identified. Assessment: 15:53 General: NO CHANGE FROM PREVIOUS VISIT. bp 17:38 Reassessment: No changes from previously documented assessment. Patient is alert, bp oriented x 3, equal unlabored respirations, skin warm/dry/pink. 18:27 Reassessment: ADMIT INITIATED. bp 18:59 Reassessment: REPORT FAXED TO [facility]TH. bp 19:33 Reassessment: Patient appears in no apparent distress at this time. Neuro: Level of tm6 Consciousness is awake, Oriented to none baseline dementia and a\\T\\0x0. Vital Signs: 15:49 BP 124 / 83; Pulse 71; Resp 16; Temp 98; Pulse Ox 95% ; bp 17:37 BP 136 / 85; Pulse 99; Resp 16; Pulse Ox 96% ; bp 18:26 BP 105 / 81; Pulse 103; Resp 16; Pulse Ox 98% ; bp 19:32 BP 113 / 81; Pulse 100; Pulse Ox 98% on R/A; tm6 ED Course: 15:48 Patient arrived in ED. bp 15:49 Brigitte Orr PA-C is PHCP. sb4 15:49 Nahomi Cortez MD is Attending Physician. sb4 15:51 Triage completed. bp 15:52 Arm band placed on. bp 15:53 Patient has correct armband on for positive identification. bp 16:21 Shaw Barker, RN is Primary Nurse. bp 16:21 Head Brain Wo Cont CT Sent. bp 16:21 Chest Single View XRAY Sent. bp 16:26 Chest Single View XRAY In Process Unspecified. EDMS 16:35 Head Brain Wo Cont CT In Process Unspecified. EDMS 17:09 COVID-19/FLU A+B/RSV Sent. bp 17:09 CBC with Diff Sent. bp 17:09 CMP Sent. bp 17:09 Lipase Sent. bp 17:09 Inserted saline lock: 22 gauge in right forearm, using aseptic technique. Blood bp collected. 18:04 Les Stevenson MD is Hospitalizing Provider. sb4 19:00 Client placed on continuous cardiac and pulse oximetry monitoring. NIBP monitoring tm6 applied. Pulse ox on. NIBP on. Noise minimized. Lights dimmed. Warm blanket given. 19:56 Assisted with dressing. Repositioned patient. Cleaned of incontinence. tm6 19:58 Cleaned of incontinence. Linen changed. mb9 20:46 Provided Education on: need for admit. tm6 20:46 No provider procedures requiring assistance completed. Patient admitted, IV remains in tm6 place. Administered Medications: 18:15 Drug: D5W IV 1000 ml IV at 50 ml/hr continuous Route: IV; Rate: 50 ml/hr; Site: right bp forearm; Medication: 15:53 VIS not applicable for this client. bp Outcome: 18:04 Decision to Hospitalize by Provider. sb4 20:46 Admitted to ICU accompanied by nurse, via stretcher, room 6, with chart, tm6 20:46 Condition: stable 20:46 Instructed on the need for admit, 20:46 Patient left the ED. tm6 Signatures: Dispatcher [employer] EDShaw Vallecillo, RN RN Brigitte Corona PAJoseC PAJoseC sb4 Claribel Perea, RN RN mb9 Jah Calabrese RN RN tm6
[2023-09-05] MEDS ORDERED: ONDANSETRON 4 MG/2 ML VIAL IV PRN (18:13)
--- NOTE | 2023-09-05 18:13 | P.HP ---
Certification for Inpatient Patient admitted to: Inpatient With expected LOS: >2 Midnights Practitioner: I am a practitioner with admitting privileges, knowledge of patient current condition, hospital course, and medical plan of care. Services: Services provided to patient in accordance with Admission requirements found in Title 42 Section 412.3 of the Code of Federal Regulations Patient History Date of Service: 09/05/23 Reason for admission: AMS History of Present Illness: 78 yrs old Male who is a prison resident with past medical history of dementia, COPD, CAD, depression, diabetes, hypertension, hyperlipidemia, history of schizophrenia, who was transferred from prison where he was noted to have altered mental status. He was difficult to arouse. Patient could not provide any history hence most of the history is obtained from the chart review and after talking with the ER physician. She also has a history of anxiety disorder, pulmonary embolism, DVT, history of anemia, CKD stage III. Patient was assessed in the ER and was admitted for further management and he was found to be hypernatremic to 153 Allergies No Known Allergies Allergy (Unverified 06/19/23 15:49) Home medications list reviewed: Yes Home Medications: Amino Acids/Protein Hydrolys [Proteinex-18 Liquid] 30 ml PO DAILY 06/20/23 Amlodipine Besylate [Norvasc] 2.5 mg PO BEDTIME 06/20/23 Apixaban [Eliquis] 1 tab PO BID 06/20/23 Ascorbic Acid [C-1000] 1,000 mg PO DAILY 06/20/23 Atorvastatin Calcium [Lipitor] 40 mg PO BEDTIME 06/20/23 Buspirone HCl [Buspar*] 5 mg PO BID 06/20/23 Cyanocobalamin [Vitamin B-12*] 500 mcg PO DAILY 06/20/23 Ferrous Sulfate [Ferrous Sulfate*] 325 mg PO BID 06/20/23 Gabapentin [Neurontin*] 100 mg PO TID 06/20/23 Insulin Aspart [Novolog Flexpen] See Protocol SQ ACHS 06/20/23 Memantine HCl [Namenda*] 10 mg PO BID 06/20/23 Omeprazole 20 mg PO DAILY 06/20/23 Ondansetron [Zofran (Odt)*] 1 tab PO Q6H PRN 06/20/23 Sertraline HCl 25 mg PO DAILY 06/20/23 Tramadol HCl [Ultram] 50 mg PO Q6HP PRN 06/20/23 - Past Medical/Surgical History Diabetic: Yes Past Medical History: Reviewed- Non-Contributory -: Dementia -: DM 2 -: Hyperlipidemia -: Schizophrenia -: Depression -: CAD -: COPD Past Surgical History: Reviewed- Non-Contributory -: Left hip surgery - Family History Family History: Reviewed- Non-Contributory - Social History Smoking Status: Never smoker Alcohol use: No CD- Drugs: No Caffeine use: No Review of Systems is unable to be obtained Physical Examination - Vital Signs Temperature: 98.4 F Blood Pressure: 112/68 Pulse: 78 Respirations: 18 Pulse Ox (%): 94 - Physical Exam General: Cachectic, Disheveled, Demented, Mild distress, Confused HEENT: Atraumatic, Normocephalic Neck: Supple, 2+ carotid pulse no bruit Respiratory: Clear to auscultation bilaterally, Normal air movement Cardiovascular: Regular rate/rhythm, Normal S1 S2, No gallops, No rubs Capillary refill: <2 Seconds Gastrointestinal: Soft and benign, W/out hepatosplenomegaly, No tenderness, No masses Musculoskeletal: No clubbing, No swelling Integumentary: No rashes Neurological: Abnormal gait, Abnormal speech, Abnormal strength, Dementia Lymphatics: No axilla or inguinal lymphadenopathy - Studies Laboratory Data (last 24 hrs) 09/05/23 09/05/23 17:05 17:05 WBC 7.40 Hgb 13.6 Hct 43.4 Plt Count 257 Sodium 153 H* Potassium 4.9 BUN 60 H Creatinine 1.84 H Glucose 168 H Total Bilirubin 0.4 AST 14 L ALT 24 Alkaline Phosphatase 228 H Lipase 19 Assessment and Plan - Problems (Diagnosis) (1) Acute metabolic encephalopathy Current Visit: Yes Status: Acute Plan: Acute metabolic encephalopathy Monitor on transition of care specialist neuro vital signs closely CT head negative for any acute changes Hypernatremia Probably due to dehydration Aggressive hydration Monitor electrolytes and replace accordingly Monitor sodium levels closely Acute kidney injury on CKD stage IIi Renal parameters monitor IV hydration Electrolytes monitored Hypercalcemia Continue IV hydration Calcium levels monitored as well Diabetes Insulin sliding scale Accu-Chek before every meal and at bedtime Dementia Monitor neuro vital signs Supportive management Possible UTI Will start on empirical antibiotic Will get cultures Will get a UA GI/DVT prophylaxis Advanced directive DNR Discharge Plan: Residential Plan to discharge in: 48 Hours - Advance Directives Does patient have a Living Will: Yes Does patient have a Durable POA for Healthcare: No - Code Status/Comfort Care Code Status: Do Not Attempt Resuscitat Time Spent Managing Pts Care (In Minutes): 48
[2023-09-05] MEDS ORDERED: D5W 1,000 ML IV ONE (18:15)
[2023-09-05] MEDS: INSULIN REGULAR (HUMAN) 100 UNIT/ML SQ SCH (21:00)
[2023-09-05] MEDS ORDERED: ENOXAPARIN 40 MG/0.4 ML SQ ONE (21:13)
[2023-09-05] MEDS: ENOXAPARIN 40 MG/0.4 ML SQ SCH (21:17)
[2023-09-05] MEDS: FOLIC ACID 1 MG, MULTIVITAMINS INJ 10 ML, THIAMINE HCL 100 MG in NA CHLORIDE 0.9% 1,000 ML IV SCH (21:17)
[2023-09-05 22:33] LABS: Anion Gap 8.1 mEq/L (5.0-15.0); Potassium 4.1 mEq/L (3.5-5.1)
[2023-09-05 22:44] VITALS: BMI 17.1
[2023-09-05] MEDS: CEFTRIAXONE 1,000 MG in NA CHLORIDE 0.9% 50 ML IVPB SCH (22:44)
[2023-09-05 23:47] LABS: Calcium Oxalate Crystals- Ur Few /HPF (None Seen); Specific Gravity 1.014 (1.005-1.030); Sqamous Epithelial <5 /HPF (None Seen); Urine Bacteria <20 /HPF (<20); Urine Bilirubin NEGATIVE (Negative); Urine Blood Trace (Negative); Urine Clarity Extremely Turbid (Clear); Urine Color Light-Yellow (Yellow); Urine Culture Reflex Order REFLEXED; Urine Glucose NEGATIVE (Negative); Urine Ketones TRACE (Negative); Urine Microscopic Reflex YN ORDER UMIC; Urine Nitrite NEGATIVE (Negative); Urine Protein 1+ (Negative); Urine RBC <5 /HPF (None Seen); Urine Urobilinogen Normal (Normal); Urine WBC 20-50 /HPF (<5); Urine WBC Clump Rare /HPF (None Seen); Urine Yeast (Budding) Trace /HPF (None Seen)
[2023-09-06 00:02] LABS: Barbiturates NEGATIVE (NEGATIVE); Benzodiazepines NEGATIVE (NEGATIVE); Cocaine NEGATIVE (NEGATIVE); METHAMPHETAM NEGATIVE (NEGATIVE); Methadone NEGATIVE (NEGATIVE); Opiates POSITIVE (NEGATIVE); Phencyclidine NEGATIVE (NEGATIVE); THC Cannibis NEGATIVE (NEGATIVE)
[2023-09-06 04:47] LABS: Absolute Lymphocytes (CBC) 0.7 K/uL (0.7-4.9); Absolute Monocytes 0.6 K/uL (0.1-1.3); Absolute Neutrophil 5.9 K/uL (1.8-8.0); Basophils % 0.4 % (0-1.3); Eosinophils % 0.7 % (0-4.4); Hemoglobin 12.3 g/dL (13.6-17.9); Lymphocytes % 9.1 % (15.3-44.8); MCH 27.8 pg (27.0-35.0); MCHC 32.4 g/dL (32.0-36.0); MCV 85.9 fL (80-100); MPV 9.6 fL (7.6-11.3); Monocytes % 8.1 % (3.3-12.3); Neutrophils % 81.7 % (41.7-73.7); Nucleated Red Blood Cells % 0.1 % (0-0); Platelets 264 thou/uL (152-406); RBC Red Blood Cell Count 4.43 M/uL (4.33-5.43); Red Cell Distribution Width 15.1 % (12.1-15.2)
[2023-09-06 05:16] LABS: Albumin 3.4 g/dL (3.4-5.0); Albumin/Globulin Ratio 0.9 (1.1-1.8); Bilirubin Total 0.3 mg/dL (0.2-1.0); Globulin 3.6 g/dL (2.3-3.5)
[2023-09-06] MEDS ORDERED: INSULIN REGULAR (HUMAN) 100 UNIT/ML ONE (12:36)
[2023-09-06] MEDS: GLUCERNA SHAKE 237 ML CAN PO SCH (21:00)
[2023-09-07 08:37] LABS: Absolute Lymphocytes (CBC) 0.5 K/uL (0.7-4.9); Absolute Monocytes 0.6 K/uL (0.1-1.3); Absolute Neutrophil 5.3 K/uL (1.8-8.0); Basophils % 0.3 % (0-1.3); Eosinophils % 0.5 % (0-4.4); Hematocrit 38.4 % (39.6-49.0); Hemoglobin 12.3 g/dL (13.6-17.9); Lymphocytes % 7.9 % (15.3-44.8); MCH 27.4 pg (27.0-35.0); MCHC 32.2 g/dL (32.0-36.0); MCV 85.1 fL (80-100); MPV 9.3 fL (7.6-11.3); Monocytes % 9.9 % (3.3-12.3); Neutrophils % 81.4 % (41.7-73.7); Nucleated Red Blood Cells % 0.2 % (0-0); Platelets 232 thou/uL (152-406); RBC Red Blood Cell Count 4.51 M/uL (4.33-5.43); Red Cell Distribution Width 15.2 % (12.1-15.2)
[2023-09-07 08:50] LABS: Magnesium 2.3 mg/dL (1.6-2.4); Phosphorus 3.2 mg/dL (2.5-4.9)
[2023-09-07] MEDS: ENOXAPARIN 30 MG/0.3 ML SQ SCH (09:49)
[2023-09-08 06:25] LABS: Absolute Basophils 0.1 K/uL (0-0.5); Absolute Lymphocytes (CBC) 0.9 K/uL (0.7-4.9); Absolute Monocytes 0.7 K/uL (0.1-1.3); Absolute Neutrophil 6.3 K/uL (1.8-8.0); Basophils % 0.6 % (0-1.3); Eosinophils % 0.1 % (0-4.4); Hematocrit 42.3 % (39.6-49.0); Hemoglobin 13.2 g/dL (13.6-17.9); Lymphocytes % 11.5 % (15.3-44.8); MCHC 31.1 g/dL (32.0-36.0); MPV 10.2 fL (7.6-11.3); Neutrophils % 78.8 % (41.7-73.7); Nucleated Red Blood Cells % 0.2 % (0-0); Platelets 224 thou/uL (152-406); RBC Red Blood Cell Count 4.87 M/uL (4.33-5.43); Red Cell Distribution Width 15.2 % (12.1-15.2)
[2023-09-08 06:31] LABS: Magnesium 2.4 mg/dL (1.6-2.4)
--- NOTE | 2023-09-08 15:18 | P.PN ---
Subjective Date of Service: 09/08/23 Chief Complaint: AMS Mr. Harrington [facility] resident with past medical history of dementia, COPD, CAD, depression, diabetes, hypertension, hyperlipidemia, history of schizophrenia, who was transferred from [facility] where he was noted to have altered mental status.assessed in the ER and was admitted for further management and he was found to be hypernatremic to 153 - Physical Exam General: Cachectic, Disheveled, Demented, Mild distress, Confused HEENT: Atraumatic, Normocephalic Neck: Supple, 2+ carotid pulse no bruit Respiratory: Clear to auscultation bilaterally, Normal air movement Cardiovascular: Regular rate/rhythm, Normal S1 S2, No gallops, No rubs Capillary refill: <2 Seconds Gastrointestinal: Soft and benign, W/out hepatosplenomegaly, No tenderness, No masses Musculoskeletal: No clubbing, No swelling Integumentary: No rashes Neurological: Abnormal gait, Abnormal speech, Abnormal strength, Dementia Lymphatics: No axilla or inguinal lymphadenopathy <Elizabeth Yousif - Last Filed: 09/08/23 15:12> Date of Service: 09/08/23 <Deanna Virk - Last Filed: 09/09/23 01:04> Review of Systems per HPI <Elizabeth Yousif - Last Filed: 09/08/23 15:12> Physical Examination - Vital Signs Temperature: 97.0 F Blood Pressure: 201/157 Pulse: 102 Respirations: 20 Pulse Ox (%): 100 <Elizabeth Yousif - Last Filed: 09/08/23 15:12> Assessment And Plan - Plan Assessment and Plan Acute metabolic encephalopathy secondary to hypernatremia Monitor on commercial sales consultant neuro vital signs closely CT head negative for any acute changes Speech therapy eval Hypernatremia Probably due to dehydration Aggressive hydration Monitor electrolytes and replace accordingly Monitor sodium levels closely Acute kidney injury on CKD stage IIi Renal parameters monitor IV hydration Electrolytes monitored Hypercalcemia Continue IV hydration Calcium levels monitored as well Diabetes Insulin sliding scale Accu-Chek before every meal and at bedtime Dementia Monitor neuro vital signs Supportive management acute cystitis Will start on empirical antibiotic Will get cultures Will get a UA GI/DVT prophylaxis Advanced directive DNR Disposition return to the nursing Discharge Plan: Correction Critical Care: No Time Spent Managing PTS Care (In Minutes): 35 <Elizabeth Yousif - Last Filed: 09/08/23 15:12> Date of Service: 09/08/23 Patient was seen and examined. Events of the last 24 hours have been noted. Spoke with with [facility] regarding patient's clinical picture after evaluating and examining the patient independently. patient with ESBL E coli. Patient with dysphagia. Swallow study pending. Patient's fast score is around a 7B. Patient dementia is fairly advanced and patient's prognosis is very poor. Severe hypernatremia; on D5W; significantly elevated BP. Family may need to consider hospice care. Tried to contact sister-left message. I performed a substantial part of the MDM during this patient's care today. I personally made or approved the documented management plan and acknowledge its risk of complications. I agree with the findings and documentation provided in the [facility]'s notes. <Deanna Virk - Last Filed: 09/09/23 01:04>
[2023-09-08] MEDS ORDERED: HYDRALAZINE HCL 20 MG/ML VIAL IV PRN (16:57)
[2023-09-08] MEDS: D5W 1,000 ML IV SCH (17:14)
[2023-09-08] MEDS ORDERED: D50W 25 GM/50 ML SYRINGE IV PRN (19:22)
[2023-09-08] MEDS: D10W 250 ML IV ONE (19:24)
[2023-09-08] MEDS: D10W 125 ML IV PRN (19:28)
[2023-09-08] MEDS: METOPROLOL TARTRATE 5 MG/5 ML INJ IV ONE (19:51)
[2023-09-08] MEDS: METOPROLOL TARTRATE 5 MG/5 ML INJ IV STA (19:54)
--- NOTE | 2023-09-09 00:49 | P.PN ---
Date of Service: 09/06/23 Subjective Chart reviewed; Physical Examination - Vital Signs reviewed - Physical Exam General: Cachectic, Disheveled, Demented, Mild distress, Confused Respiratory: Clear to auscultation bilaterally, Normal air movement Cardiovascular: Regular rate/rhythm, Normal S1 S2, No gallops, No rubs Gastrointestinal: Soft and benign, W/out hepatosplenomegaly, No tenderness, No masses Musculoskeletal: No clubbing, No swelling Integumentary: No rashes Neurological: Abnormal gait, Abnormal speech, Abnormal strength, Dementia; contractures Assessment and Plan - Problems (Diagnosis) Acute metabolic encephalopathy Monitor on business relations manager neuro vital signs closely CT head negative for any acute changes Hypernatremia Probably due to dehydration Aggressive hydration with D5W Monitor electrolytes and replace accordingly Monitor sodium levels closely Acute kidney injury on CKD stage III Renal parameters monitor IV hydration Electrolytes monitored Hypercalcemia Continue IV hydration Calcium levels monitored as well Diabetes Insulin sliding scale Accu-Chek before every meal and at bedtime Dementia Monitor neurological status Supportive management Possible UTI Await cx; continue with IV antibiotics GI/DVT prophylaxis Advanced directive DNR Discharge Plan: [facility] Plan to discharge in: 48-72 Hours - Advance Directives Does patient have a Living Will: Yes Does patient have a Durable POA for Healthcare: No - Code Status/Comfort Care Code Status: Do Not Attempt Resuscitat Time Spent Managing Pts Care (In Minutes): 48
[2023-09-09] MEDS: DIVALPROEX NA 125 MG CAP PO SCH ×2 (01:00→08:00)
--- NOTE | 2023-09-09 01:01 | P.PN ---
Date of Service: 09/07/23 Subjective Chart reviewed; Physical Examination - Vital Signs reviewed - Physical Exam General: Cachectic, Disheveled, Demented, Mild distress, Confused Respiratory: Clear to auscultation bilaterally, Normal air movement Cardiovascular: Regular rate/rhythm, Normal S1 S2, No gallops, No rubs Gastrointestinal: Soft and benign, W/out hepatosplenomegaly, No tenderness, No masses Musculoskeletal: No clubbing, No swelling Integumentary: No rashes Neurological: Abnormal gait, Abnormal speech, Abnormal strength, Dementia; contractures Assessment and Plan - Problems (Diagnosis) Acute metabolic encephalopathy with dysphagia/anorexia Monitor on developmental behavioral physician neuro vital signs closely CT head negative for any acute changes Poor prognosis; advanced Alzheimer's dementia; may need to proceed with hospice care if severe dysphagia Hypernatremia Probably due to dehydration Aggressive hydration with D5W Monitor electrolytes and replace accordingly Monitor sodium levels closely Acute kidney injury on CKD stage III Renal parameters monitor IV hydration Electrolytes monitored Hypercalcemia Continue IV hydration Calcium levels monitored as well Diabetes Insulin sliding scale Accu-Chek before every meal and at bedtime Dementia FAST score is approx 7B; hospice care Supportive management UTI Await cx; continue with IV antibiotics GI/DVT prophylaxis Advanced directive DNR Discharge Plan: [facility] Plan to discharge in: 48-72 Hours - Advance Directives Does patient have a Living Will: Yes Does patient have a Durable POA for Healthcare: No - Code Status/Comfort Care Code Status: Do Not Attempt Resuscitat Time Spent Managing Pts Care (In Minutes): 48
[2023-09-09] MEDS: Meropenem 500 MG in NA CHLORIDE 0.9% 100 ML IV SCH (01:41)
[2023-09-09 07:03] LABS: Absolute Eosinophils 0.1 K/uL (0-0.5); Absolute Lymphocytes (CBC) 0.7 K/uL (0.7-4.9); Absolute Monocytes 0.5 K/uL (0.1-1.3); Absolute Neutrophil 4.3 K/uL (1.8-8.0); Basophils % 0.6 % (0-1.3); Eosinophils % 1.3 % (0-4.4); Hematocrit 37.4 % (39.6-49.0); Hemoglobin 11.6 g/dL (13.6-17.9); Lymphocytes % 12.4 % (15.3-44.8); MCH 26.9 pg (27.0-35.0); MCHC 31.1 g/dL (32.0-36.0); MCV 86.5 fL (80-100); MPV 10.3 fL (7.6-11.3); Monocytes % 9.6 % (3.3-12.3); Neutrophils % 76.1 % (41.7-73.7); Platelets 179 thou/uL (152-406); RBC Red Blood Cell Count 4.32 M/uL (4.33-5.43); Red Cell Distribution Width 15.5 % (12.1-15.2)
[2023-09-09 07:05] LABS: Albumin 2.9 g/dL (3.4-5.0); Albumin/Globulin Ratio 0.9 (1.1-1.8); Anion Gap 5.1 mEq/L (5.0-15.0); Bilirubin Total 0.4 mg/dL (0.2-1.0); Globulin 3.2 g/dL (2.3-3.5); Potassium 3.1 mEq/L (3.5-5.1); Protein, Total 6.1 g/dL (6.4-8.2)
[2023-09-09] MEDS: MEMANTINE HCL 10 MG TABLET PO SCH (08:18)
[2023-09-09] MEDS: DOCUSATE NA 100 MG CAP PO SCH (08:18)
[2023-09-09] MEDS: SERTRALINE HCL 50 MG TAB PO SCH (08:18)
--- NOTE | 2023-09-09 08:36 | P.PN ---
Subjective Date of Service: 09/09/23 Chief Complaint: AMS Subjective: No new changes (pt talkative but incoherent) <Nakia Perez - Last Filed: 09/09/23 10:07> Date of Service: 09/09/23 <Robson Ortega Alhaji - Last Filed: 09/09/23 14:22> Review of Systems 10-point ROS is otherwise unremarkable Neurological: As per HPI <Nakia Perezlen - Last Filed: 09/09/23 10:07> Physical Examination - Vital Signs Temperature: 97.3 F Blood Pressure: 135/83 Pulse: 80 Respirations: 16 Pulse Ox (%): 94 - Physical Exam General: Alert, Cachectic, Demented HEENT: Atraumatic, Normocephalic Neck: JVD not distended Respiratory: Normal air movement Cardiovascular: No edema, Regular rate/rhythm Capillary refill: <2 Seconds Gastrointestinal: Soft and benign Musculoskeletal: Contractures Integumentary: No rashes Neurological: Dementia Lymphatics: No axilla or inguinal lymphadenopathy External genitalia: Deferred Rectal: Deferred <Nakia Perez - Last Filed: 09/09/23 10:07> Assessment And Plan - Plan - Problems (Diagnosis) (1) Acute metabolic encephalopathy Current Visit: Yes Status: Acute Plan: Acute metabolic encephalopathy Monitor on cyber security instructor neuro vital signs closely CT head negative for any acute changes Hypernatremia Probably due to dehydration - 162 this am Monitor electrolytes and replace accordingly Monitor sodium levels closely Acute kidney injury on CKD stage II Renal parameters monitor IV hydration Electrolytes monitored Creatinine improved from 1.84 to 1.27 on 09/08 Hypercalcemia Continue IV hydration Calcium levels monitored as well Diabetes Insulin sliding scale Accu-Chek before every meal and at bedtime Dementia Monitor neuro vital signs Supportive management Possible UTI Will start on empirical antibiotic Will get cultures Will get a UA GI/DVT prophylaxis Advanced directive DNR Discharge Plan: [facility] Plan to discharge in: 48 Hours - Advance Directives Does patient have a Living Will: Yes Does patient have a Durable POA for Healthcare: No - Code Status/Comfort Care Code Status: Do Not Attempt Resuscitat <Nakia Perezlen - Last Filed: 09/09/23 10:07> - Plan Pt seen and examined. I agree with the note by the WET CROWN BLOCKING OPERATOR. Pt is confused. Likely due to hypernatremia. Na is 162. Will continue D5W and trend NA. Continue empiric abx for possible UTI. CHARITO improved with hydration ( cr 1.27 <- 1.84) <Robson Ortega - Last Filed: 09/09/23 14:22>
[2023-09-09] MEDS: Meropenem 1,000 MG in NA CHLORIDE 0.9% 100 ML IV SCH (09:33)
[2023-09-09] MEDS: AMLODIPINE 2.5 MG TAB PO SCH (21:00)
[2023-09-09 22:07] LABS: Anion Gap 6.2 mEq/L (5.0-15.0); Potassium 3.2 mEq/L (3.5-5.1)
[2023-09-10] MEDS: D5LR 1,000 ML IV SCH (06:00)
[2023-09-10 07:05] LABS: Albumin 2.6 g/dL (3.4-5.0); Albumin/Globulin Ratio 0.9 (1.1-1.8); Anion Gap 9.1 mEq/L (5.0-15.0); Bilirubin Total 0.3 mg/dL (0.2-1.0); Magnesium 1.9 mg/dL (1.6-2.4); Phosphorus 2.8 mg/dL (2.5-4.9); Potassium 3.1 mEq/L (3.5-5.1); Protein, Total 5.6 g/dL (6.4-8.2)
[2023-09-10 07:14] LABS: Absolute Eosinophils 0.1 K/uL (0-0.5); Absolute Lymphocytes (CBC) 0.8 K/uL (0.7-4.9); Absolute Monocytes 0.4 K/uL (0.1-1.3); Absolute Neutrophil 3.6 K/uL (1.8-8.0); Basophils % 0.7 % (0-1.3); Hematocrit 36.8 % (39.6-49.0); Hemoglobin 11.6 g/dL (13.6-17.9); Lymphocytes % 16.2 % (15.3-44.8); MCH 27.3 pg (27.0-35.0); MCHC 31.6 g/dL (32.0-36.0); MCV 86.3 fL (80-100); MPV 9.8 fL (7.6-11.3); Monocytes % 8.1 % (3.3-12.3); Nucleated Red Blood Cells % 0.6 % (0-0); Platelets 118 thou/uL (152-406); RBC Red Blood Cell Count 4.26 M/uL (4.33-5.43); Red Cell Distribution Width 14.9 % (12.1-15.2)
[2023-09-10] MEDS: Mupirocin NASAL 2 APPL/1 GM TUBE NAS SCH (07:54)
[2023-09-10] MEDS: ENOXAPARIN 40 MG/0.4 ML SQ SCH (07:54)
--- NOTE | 2023-09-10 10:21 | P.PN ---
Subjective Date of Service: 09/10/23 Chief Complaint: AMS Subjective: Demented (more talkative, with a bit more intelligable speech) <Nani Perezkeke Navarrete - Last Filed: 09/10/23 10:16> Date of Service: 09/10/23 <Robson Ortega Alhaji - Last Filed: 09/10/23 13:06> Review of Systems 10-point ROS is otherwise unremarkable General: Weakness, Malaise, As per HPI Neurological: As per HPI <PerezNakia Navarrete - Last Filed: 09/10/23 10:16> Physical Examination - Vital Signs Temperature: 97.4 F Blood Pressure: 166/86 Pulse: 67 Respirations: 18 Pulse Ox (%): 95 - Physical Exam General: Alert, Cooperative, Cachectic, Demented Neck: JVD not distended Respiratory: Normal air movement Cardiovascular: Normal pulses, Regular rate/rhythm Capillary refill: <2 Seconds Gastrointestinal: Soft and benign Musculoskeletal: No clubbing Integumentary: No rashes Neurological: Abnormal speech, Abnormal tone, Dementia Lymphatics: No axilla or inguinal lymphadenopathy External genitalia: Deferred Rectal: Deferred <PerezNanikeke Navarrete - Last Filed: 09/10/23 10:16> Assessment And Plan - Plan - Problems (Diagnosis) (1) Acute metabolic encephalopathy Current Visit: Yes Status: Acute Plan: Acute metabolic encephalopathy Monitor on production grip neuro vital signs closely CT head negative for any acute changes - alert, demented, more intelligible speech noted today 09/09 Hypernatremia Probably due to dehydration - 162 this am, 159 this am. Bolus with D5LR x 500ml, repeat C7 at 1500 Monitor electrolytes and replace accordingly Monitor sodium levels closely Acute kidney injury on CKD stage II Renal parameters monitor IV hydration Electrolytes monitored Creatinine improved from 1.84 to 1.27 on 09/08, creatinine 09/09 1.12, GFR 67 Hypercalcemia Continue IV hydration Calcium levels monitored as well Diabetes Insulin sliding scale, hypoglycemic overnight, D10 x 125ml given Accu-Chek before every meal and at bedtime Dementia Monitor neuro vital signs Supportive management UTI Started on Merrem on 09/06, culture returned yesterday with ESBL, pt has PICC to right upper arm GI/DVT prophylaxis Advanced directive DNR Discharge Plan: [facility] Plan to discharge in: 48 Hours - Advance Directives Does patient have a Living Will: Yes Does patient have a Durable POA for Healthcare: No - Code Status/Comfort Care Code Status: Do Not Attempt Resuscitat <Nakia Perez - Last Filed: 09/10/23 10:16> - Plan Pt seen and examined. I agree with the note by the ESTIMATION MANAGER. Pt is more interactive today. N ai is improving 162 -> 159. Will continue D5W. Monitor Na. CHARITO is improving. Continue home med for other chronic medical problems. <Robson Ortega - Last Filed: 09/10/23 13:06>
[2023-09-10] MEDS: POTASSIUM CL 40 MEQ in NA CHLORIDE 0.9% 500 ML IV SCH (10:27)
[2023-09-10] MEDS: D5W 1,000 ML IV SCH (11:40)
[2023-09-10 16:23] LABS: Anion Gap 7.8 mEq/L (5.0-15.0); Potassium 3.8 mEq/L (3.5-5.1)
[2023-09-11 11:24] LABS: Absolute Eosinophils 0.1 K/uL (0-0.5); Absolute Lymphocytes (CBC) 0.9 K/uL (0.7-4.9); Absolute Monocytes 0.5 K/uL (0.1-1.3); Absolute Neutrophil 4.9 K/uL (1.8-8.0); Basophils % 0.5 % (0-1.3); Eosinophils % 1.5 % (0-4.4); Hematocrit 38.6 % (39.6-49.0); Hemoglobin 11.9 g/dL (13.6-17.9); Lymphocytes % 14.5 % (15.3-44.8); MCH 26.7 pg (27.0-35.0); MCHC 30.8 g/dL (32.0-36.0); MCV 86.5 fL (80-100); MPV 10.2 fL (7.6-11.3); Neutrophils % 75.5 % (41.7-73.7); Nucleated Red Blood Cells % 0.1 % (0-0); Platelets 121 thou/uL (152-406); RBC Red Blood Cell Count 4.46 M/uL (4.33-5.43)
[2023-09-11 11:40] LABS: Albumin 2.5 g/dL (3.4-5.0); Albumin/Globulin Ratio 0.8 (1.1-1.8); Anion Gap 9.9 mEq/L (5.0-15.0); Bilirubin Total 0.3 mg/dL (0.2-1.0); Globulin 3.1 g/dL (2.3-3.5); Magnesium 1.8 mg/dL (1.6-2.4); Phosphorus 2.5 mg/dL (2.5-4.9); Potassium 3.9 mEq/L (3.5-5.1); Protein, Total 5.6 g/dL (6.4-8.2)
--- NOTE | 2023-09-11 13:19 | P.PN ---
Subjective Date of Service: 09/11/23 Chief Complaint: AMS Subjective: Improving (Pt told me, " I feel a little better") <PerezNakia Navarrete - Last Filed: 09/11/23 13:14> Date of Service: 09/11/23 <Robson Ortega Alhaji - Last Filed: 09/11/23 13:45> Review of Systems 10-point ROS is otherwise unremarkable General: As per HPI Neurological: As per HPI <Nakia Perez - Last Filed: 09/11/23 13:14> Physical Examination - Vital Signs Temperature: 97.7 F Blood Pressure: 134/84 Pulse: 75 Respirations: 16 Pulse Ox (%): 100 - Physical Exam General: Alert, Cooperative, Cachectic HEENT: Atraumatic, Normocephalic Neck: JVD not distended Respiratory: Normal air movement Cardiovascular: No edema, Regular rate/rhythm, Systolic murmur Capillary refill: <2 Seconds Gastrointestinal: Soft and benign Musculoskeletal: Contractures Integumentary: Other (right heel peeling minimally. Pt with sock on left but he has taken the right sock off) Neurological: Abnormal speech, Abnormal tone, Dementia Lymphatics: No axilla or inguinal lymphadenopathy External genitalia: Deferred Rectal: Deferred <AnaNakia Navarrete - Last Filed: 09/11/23 13:14> Assessment And Plan - Plan - Problems (Diagnosis) (1) Acute metabolic encephalopathy Current Visit: Yes Status: Acute Plan: Acute metabolic encephalopathy Monitor on manager technical support neuro vital signs closely CT head negative for any acute changes - alert, demented, more intelligible speech noted today 09/09, states "I feel a lil better" and I understood him without difficulty 09/10 Hypernatremia Probably due to dehydration - 162 this am, 159 this am. Bolus with D5LR x 500ml, repeat C7 on 09/09 at 1500 =155, Na 149 on 09/10 Monitor electrolytes and replace accordingly Monitor sodium levels closely Acute kidney injury on CKD stage II Renal parameters monitor IV hydration Electrolytes monitored Creatinine improved from 1.84 to 1.27 on 09/08, creatinine 09/09 1.12, GFR 67, normal creatinine today 09/10 Hypercalcemia Continue IV hydration Calcium levels monitored as well Diabetes Insulin sliding scale, hypoglycemic overnight, D10 x 125ml given Accu-Chek before every meal and at bedtime Dementia Monitor neuro vital signs Supportive management UTI Started on Merrem on 09/06, culture returned yesterday with ESBL, pt has PICC to right upper arm. Merrem continues. GI/DVT prophylaxis Advanced directive DNR Discharge Plan: [facility] Plan to discharge in: 48 Hours - Advance Directives Does patient have a Living Will: Yes Does patient have a Durable POA for Healthcare: No - Code Status/Comfort Care Code Status: Do Not Attempt Resuscitat Discharge Plan: [facility] Plan to discharge in: 24 Hours <Nakia Perez - Last Filed: 09/11/23 13:14> - Plan Pt seen and examined. I agree withe the note by the STATION WORKER. Sodium is improving. It has improved from 162 to 155. Pt is more interactive. Continue merrem for UTI. CHARITO / volume depletion has improved. <Robson Ortega - Last Filed: 09/11/23 13:45>
[2023-09-11] MEDS: ACETAMINOPHEN 325 MG TABLET PO PRN (13:53)
[2023-09-12 09:22] VITALS: O2SAT 98
[2023-09-12 11:10] LABS: Absolute Eosinophils 0.1 K/uL (0-0.5); Absolute Lymphocytes (CBC) 0.7 K/uL (0.7-4.9); Absolute Monocytes 0.3 K/uL (0.1-1.3); Absolute Neutrophil 4.6 K/uL (1.8-8.0); Basophils % 0.6 % (0-1.3); Hematocrit 41.3 % (39.6-49.0); Lymphocytes % 12.3 % (15.3-44.8); MCH 26.8 pg (27.0-35.0); MCHC 31.6 g/dL (32.0-36.0); MCV 85.1 fL (80-100); MPV 10.3 fL (7.6-11.3); Monocytes % 5.5 % (3.3-12.3); Neutrophils % 80.6 % (41.7-73.7); Nucleated Red Blood Cells % 0.1 % (0-0); Platelets 109 thou/uL (152-406); RBC Red Blood Cell Count 4.86 M/uL (4.33-5.43); Red Cell Distribution Width 14.7 % (12.1-15.2)
[2023-09-12 11:28] LABS: Albumin 2.6 g/dL (3.4-5.0); Albumin/Globulin Ratio 0.8 (1.1-1.8); Anion Gap 6.9 mEq/L (5.0-15.0); Bilirubin Total 0.2 mg/dL (0.2-1.0); Globulin 3.3 g/dL (2.3-3.5); Magnesium 1.9 mg/dL (1.6-2.4); Phosphorus 2.2 mg/dL (2.5-4.9); Potassium 3.9 mEq/L (3.5-5.1); Protein, Total 5.9 g/dL (6.4-8.2)
--- NOTE | 2023-09-12 12:24 | P.PN ---
Subjective Date of Service: 09/12/23 Chief Complaint: AMS Subjective: Improving (Alert, speaking in full sentences. Will discharge to [facility] pending IV abx set up for Merrem x 10 more days) <Nakia Perez - Last Filed: 09/12/23 12:18> Date of Service: 09/12/23 <Robson Ortega - Last Filed: 09/12/23 13:45> Review of Systems 10-point ROS is otherwise unremarkable General: As per HPI Neurological: As per HPI <Nakia Perez - Last Filed: 09/12/23 12:18> Physical Examination - Vital Signs Temperature: 97.1 F Blood Pressure: 164/72 Pulse: 79 Respirations: 16 Pulse Ox (%): 97 - Physical Exam General: Alert, In no apparent distress, Oriented x2, Demented, Other (speaking in full sentences, looks much better) HEENT: Atraumatic, Normocephalic Neck: Supple Respiratory: Normal air movement Cardiovascular: Normal pulses Capillary refill: Other (right heel with flaking skin, no worse than yesterday) Gastrointestinal: Soft and benign Musculoskeletal: No clubbing, No swelling, Contractures Integumentary: No rashes Neurological: Other (speaking much more clearly), Abnormal tone, Dementia Lymphatics: No axilla or inguinal lymphadenopathy External genitalia: Deferred Rectal: Deferred <Nakia Perez - Last Filed: 09/12/23 12:18> Assessment And Plan - Plan - Problems (Diagnosis) (1) Acute metabolic encephalopathy Current Visit: Yes Status: Acute Plan: Acute metabolic encephalopathy Monitor on spray painter helper neuro vital signs closely CT head negative for any acute changes - alert, demented, more intelligible speech noted today 09/09, states "I feel a lil better" and I understood him without difficulty 09/10. Speaking in full sentences. Finally appears euvolemic Hypernatremia Probably due to dehydration - 162 this am, 159 this am. Bolus with D5LR x 500ml, repeat C7 on 09/09 at 1500 =155, Na 149 on 09/10, 143 on 09/11 Monitor electrolytes and replace accordingly Monitor sodium levels closely Acute kidney injury on CKD stage II Renal parameters monitor IV hydration Electrolytes monitored Creatinine improved from 1.84 to 1.27 on 09/08, creatinine 09/09 1.12, GFR 67, normal creatinine today 09/10 Hypercalcemia Continue IV hydration Calcium levels monitored as well Diabetes Insulin sliding scale Accu-Chek before every meal and at bedtime Dementia Monitor neuro vital signs Supportive management UTI Started on Merrem on 09/08, culture returned yesterday with ESBL, pt has PICC to right upper arm. Merrem continues. Will order 10 additional days of Merrem to be given at [facility] through PICC to right arm. Weekly C7 to be monitored per SNF MD GI/DVT prophylaxis Advanced directive DNR Discharge Plan: [facility] Plan to discharge in: 48 Hours - Advance Directives Does patient have a Living Will: Yes Does patient have a Durable POA for Healthcare: No - Code Status/Comfort Care Code Status: Do Not Attempt Resuscitat Discharge Plan: [facility] Plan to discharge in: 24 Hours <Nakia Perez - Last Filed: 09/12/23 12:18> - Plan Pt seen and examined. I agree with the note by the REPORTER ANCHOR. Hypernatremia has resolved. Pt is more interactive. Continue iv merrem for UTI. Will dc soon <Robson Ortega - Last Filed: 09/12/23 13:45>
--- NOTE | 2023-09-12 14:56 | P.DS ---
Admission Date: 09/05/23 Discharge Date: 09/12/23 Disposition: TRANSFER TO SNF - MEDICAL Discharge Condition: GOOD Reason for Admission: AMS Brief History of Present Illness: 78 yrs old Male who is a senior care resident with past medical history of dementia, COPD, CAD, depression, diabetes, hypertension, hyperlipidemia, history of schizophrenia, who was transferred from senior care where he was noted to have altered mental status. He was difficult to arouse. Patient could not provide any history hence most of the history is obtained from the chart review and after talking with the ER physician. She also has a history of anxiety disorder, pulmonary embolism, DVT, history of anemia, CKD stage III. Patient was assessed in the ER and was admitted for further management and he was found to be hypernatremic to 153 Hospital Course: Pt is a 78yo male froma senior care with past medical history of dementia, COPD, CAD, depression, diabetes, hypertension, hyperlipidemia, and schizophrenia who presented with altered mental status. He was difficult to arouse. On admission, lab studies showed hypernatremia (153). We admitted pt for acute metabolic encephalopath due to hypernatremia. We gave D5W and trended sodium 153 -> 162 -> 155 > 149 -> 144. . CT head was unremarkable. CHARITO on CKD improved with IVF. Hypercalcemia improved with IVF. We gave merrem for UTI. Urine cx grew Proteus mirabilis ESBL. Pt will complete 10 more days of merrem at the [facility]. Pt was in NAD prior to discharge. Vital Signs/Physical Exam: Temp Pulse Resp BP Pulse Ox 97.1 F 79 16 164/72 H 97 09/12/23 12:24 09/12/23 12:24 09/12/23 12:24 09/12/23 12:24 09/12/23 12:24 Laboratory Data at Discharge: WBC 5.70 thou/uL (4.3-10.9) 09/12/23 10:58 Hgb 13.0 g/dL (13.6-17.9) L D 09/12/23 10:58 Hct 41.3 % (39.6-49.0) 09/12/23 10:58 Plt Count 109 thou/uL (152-406) L 09/12/23 10:58 Sodium 144 mEq/L (136-145) D 09/12/23 10:58 Potassium 3.9 mEq/L (3.5-5.1) 09/12/23 10:58 BUN 14 mg/dL (7-18) 09/12/23 10:58 Creatinine 0.93 mg/dL (0.70-1.30) 09/12/23 10:58 Glucose 125 mg/dL (74-106) H 09/12/23 10:58 Phosphorus 2.2 mg/dL (2.5-4.9) L 09/12/23 10:58 Magnesium 1.9 mg/dL (1.6-2.4) 09/12/23 10:58 Total Bilirubin 0.2 mg/dL (0.2-1.0) 09/12/23 10:58 AST 44 U/L (15-37) H 09/12/23 10:58 ALT 45 U/L (16-61) 09/12/23 10:58 Alkaline Phosphatase 174 U/L (45-117) H 09/12/23 10:58 Lipase 19 U/L (13-75) 09/05/23 17:05 Home Medications: Amino Acids/Protein Hydrolys [Proteinex-18 Liquid] 30 ml PO DAILY 06/20/23 Amlodipine Besylate [Norvasc] 2.5 mg PO BEDTIME 06/20/23 Apixaban [Eliquis] 1 tab PO BID 06/20/23 Ascorbic Acid [C-1000] 1,000 mg PO DAILY 06/20/23 Atorvastatin Calcium [Lipitor] 40 mg PO BEDTIME 06/20/23 Cyanocobalamin [Vitamin B-12*] 500 mcg PO DAILY 06/20/23 Ferrous Sulfate [Ferrous Sulfate*] 325 mg PO BID 06/20/23 Gabapentin [Neurontin*] 100 mg PO TID 06/20/23 Insulin Aspart [Novolog Flexpen] See Protocol SQ ACHS 06/20/23 Memantine HCl [Namenda*] 10 mg PO BID 06/20/23 Omeprazole 20 mg PO DAILY 06/20/23 Ondansetron [Zofran (Odt)*] 1 tab PO Q6H PRN 06/20/23 Sertraline HCl 25 mg PO DAILY 06/20/23 Acetaminophen 500 mg PO Q6HP PRN 09/06/23 Codeine/APAP [Tylenol #3*] 1 tab PO Q8H 09/06/23 Divalproex [Depakote Sprinkle*] 1 cap PO Q12H 09/06/23 Docusate Sodium 100 mg PO BID 09/06/23 hydrOXYzine pamoate [Hydroxyzine Pamoate] 50 mg PO Q4HP PRN 09/06/23 Physician Discharge Instructions: Continue home meds as prescribed. Take 10 more days of merrem. Drink water at home. Follow up with PCP within 1 - 2 weeks. Diet: AHA Activity: Ad ray Followup: NONE,NONE [Primary Care Provider] -
[2023-09-12 16:40] VITALS: BP 168/55; TEMP 97.2
--- NOTE | 2023-09-12 17:16 | EKG ---
Test Date: 2023-09-05 Test Time: 16:57:43 Cow Tender: BP MEASUREMENT RESULTS: Intervals: Rate: 101 OK: 166 QRSD: 74 QT: 400 QTc: 518 [place]: P: 76 OK: 166 QRS: 18 T: -24 INTERPRETIVE STATEMENTS: Sinus tachycardia Nonspecific T wave abnormality Abnormal ECG Compared to ECG 06/19/2023 13:59:18 T-wave abnormality now present Electronically Signed On 09-12-23 16:50:56 CDT by Dutch Dubose
== END 2023-09-12 19:35 | DRG 640 ==
LOC: ER 15:44 → 3RD-ICU 20:29 → 4TH 09-06 15:40 → 2ND 09-09 10:57
PROVIDERS: ADMIT Family Medicine; ATTEND Hospitalist
PROC: 02HV33Z Insertion of Infusion Device into Superior Vena Cava, Percutaneous Approach (ICD-10-PCS; principal; 2023-09-10)
DX: E87.0 Hyperosmolality and hypernatremia (principal); G93.41 Metabolic encephalopathy; Z68.1 Body mass index [BMI] 19.9 or less, adult; R64 Cachexia; N17.9 Acute kidney failure, unspecified; N30.00 Acute cystitis without hematuria; Z16.12 Extended spectrum beta lactamase (ESBL) resistance; L89.610 Pressure ulcer of right heel, unstageable; E78.00 Pure hypercholesterolemia, unspecified; E83.52 Hypercalcemia; E86.0 Dehydration; I12.9 Hypertensive chronic kidney disease with stage 1 through stage 4 chronic kidney disease, or unspecified chronic kidney disease; N18.30 Chronic kidney disease, stage 3 unspecified; E11.22 Type 2 diabetes mellitus with diabetic chronic kidney disease; J44.9 Chronic obstructive pulmonary disease, unspecified; G30.9 Alzheimer's disease, unspecified; F02.80 Dementia in other diseases classified elsewhere, unspecified severity, without behavioral disturbance, psychotic disturbance, mood disturbance, and anxiety; I25.10 Atherosclerotic heart disease of native coronary artery without angina pectoris; B96.20 Unspecified Escherichia coli [E. coli] as the cause of diseases classified elsewhere; R13.10 Dysphagia, unspecified; Z66 Do not resuscitate; Z79.4 Long term (current) use of insulin; Z79.01 Long term (current) use of anticoagulants; Z86.711 Personal history of pulmonary embolism; Z79.899 Other long term (current) drug therapy; Z86.718 Personal history of other venous thrombosis and embolism
CPT/HCPCS: 0241U; 36415; 70450; 71045; 80048; 80053; 80164; 80307; 81001; 82140; 82533; 82607; 82947; 83540; 83690; 83735; 83930; 83935; 84100; 84300; 84443; 85025; 86140; 87086; 87088; 92526; 92610; 93005; 94760; 95851; 97161; 99285; J0696; J1650; J1815; J2185; J3411; J3480; J7030; J7040